=== PATIENT | male | born 1955 | race African-American/Black ===

== ENCOUNTER 2016-09-13 04:44 | Emergency (ER) | payer MEDICAID ==
[~2016-09-13] VITALS: Ht 185.4 cm; Wt 83.3 kg
[~2016-09-13 04:44] MED LIST: DIAZ10TA PO
[2016-09-13] MEDS ORDERED: [UNRECOGNIZED DRUG - OTHER] (04:51)
[2016-09-13 05:01] VITALS: BP 109/73
== END 2016-09-13 05:21 | disposition home or self-care (01) ==
LOC: ED 05:14
DX: S33.5XXA Sprain of ligaments of lumbar spine, initial encounter (principal); X58.XXXA Exposure to other specified factors, initial encounter; Y93.89 Activity, other specified; Y99.8 Other external cause status; Y92.89 Other specified places as the place of occurrence of the external cause
CPT/HCPCS: 99283

== ENCOUNTER 2016-11-01 20:05 | Emergency (ER) | payer MEDICAID ==
[~2016-11-01] VITALS: Ht 185.4 cm; Wt 83.1 kg
[~2016-11-01 20:05] MED LIST changes: +[UNRECOGNIZED DRUG - OTHER]
[2016-11-01 20:09] VITALS: BP 136/82
[2016-11-01] MEDS ORDERED: BACITRACIN ZINC OINT 500U/GM, 0.9 GM ONE (20:30)
== END 2016-11-01 20:45 | disposition home or self-care (01) ==
LOC: ED 20:30
DX: S91.114A Laceration without foreign body of right lesser toe(s) without damage to nail, initial encounter (principal); B35.1 Tinea unguium; I10 Essential (primary) hypertension; F32.9 Major depressive disorder, single episode, unspecified; X58.XXXA Exposure to other specified factors, initial encounter; Y93.89 Activity, other specified; Y92.89 Other specified places as the place of occurrence of the external cause; Y99.8 Other external cause status
CPT/HCPCS: 10160

== ENCOUNTER 2016-11-12 22:32 | Emergency (ER) | payer MEDICAID ==
[~2016-11-12] VITALS: Ht 185.4 cm; Wt 86.3 kg
[2016-11-13] MEDS ORDERED: MAALOX/HYOSCYAMINE/LIDOCAINE 45 ML BTL ONE (00:14)
[2016-11-13 00:28] LABS: HEMOGLOBIN 12.3 g/dL (13.7-18.0); WHITE BLOOD COUNT 5.4 x10^3/uL (3.4-10)
[2016-11-13] MEDS ORDERED: SODIUM CHLORIDE FLUSH 10ML SYR IVF ONE (00:30)
[2016-11-13] MEDS ORDERED: MAALOX/HYOSCYAMINE/LIDOCAINE 45 ML BTL PO ONE (00:30)
[2016-11-13 00:38] LABS: ASPARTATE AMINO TRANSFERASE 33 U/L (15-37); BLOOD UREA NITROGEN 15 mg/dL (7-18)
[2016-11-13 01:08] VITALS: BP 123/74
== END 2016-11-13 02:03 | disposition home or self-care (01) ==
LOC: ED 23:34
DX: R10.13 Epigastric pain (principal); I10 Essential (primary) hypertension
CPT/HCPCS: 36415; 71010; 80053; 83690; 85025; 93005; 99285

== ENCOUNTER 2016-11-20 16:34 | Emergency (ER) | payer MEDICAID ==
[~2016-11-20] VITALS: Ht 185.4 cm; Wt 82.0 kg
[2016-11-20] MEDS ORDERED: SODIUM CHLORIDE FLUSH 10ML SYR IVF ONE (17:00)
[2016-11-20] MEDS ORDERED: SODIUM CHLORIDE 0.9% 1,000ML IVBOLUS ONE (17:00)
[2016-11-20 17:17] LABS: HEMATOCRIT 40.2 % (39.2-51.8)
[2016-11-20 17:22] VITALS: BP 139/80
[2016-11-20 17:26] LABS: ASPARTATE AMINO TRANSFERASE 30 U/L (15-37); BLOOD UREA NITROGEN 14 mg/dL (7-18)
[2016-11-20 17:30] LABS: IS PT STATUS REG ER OR PRE ER? YES
[2016-11-20] MEDS ORDERED: AMOXICILLIN 500 MG CAPSULE PO ONE (18:00)
== END 2016-11-20 18:38 | disposition home or self-care (01) ==
LOC: ED 17:14
DX: J02.8 Acute pharyngitis due to other specified organisms (principal); R53.1 Weakness; R53.83 Other fatigue
CPT/HCPCS: 36415; 71010; 80053; 81003; 84484; 85025; 99285

== ENCOUNTER 2018-05-13 12:04 | Emergency (ER) | payer MEDICAID ==
[~2018-05-13] VITALS: Ht 185.4 cm; Wt 87.0 kg
[2018-05-13 13:28] LABS: ALBUMIN 3.8 g/dL (3.4-5.0); ANION GAP 4 mmol/L (5-15); CALCIUM 8.2 mg/dL (8.5-10.1); CHLORIDE 108 mmol/L (98-107); CREATININE 0.94 mg/dL (0.7-1.3)
[2018-05-13 13:41] LABS: BASOPHILS # (AUTO) 0.07 x10^3/uL (0-0.1); BASOPHILS % (AUTO) 2 % (0-1); EOSINOPHILS # (AUTO) 0.04 x10^3/uL (0-0.4); EOSINOPHILS % (AUTO) 1 % (1-7); LYMPHOCYTES # (AUTO) 0.97 x10^3/uL (1-3.4); LYMPHOCYTES % (AUTO) 21 % (22-44); MD SCAN; MEAN CORPUSCULAR HEMOGLOBIN 29.7 pg (27.5-34.5); MEAN CORPUSCULAR HGB CONC 33.8 g/dL (33.2-36.2); MEAN CORPUSCULAR VOLUME 87.7 fL (81-97); MEAN PLATELET VOLUME 7.8 fL (7.4-10.4); MONOCYTES # (AUTO) 0.34 x10^3/uL (0.2-0.8); MONOCYTES % (AUTO) 8 % (2-9); NEUTROPHILS # (AUTO) 3.11 x10^3/uL (1.8-6.8); NEUTROPHILS % (AUTO) 69 % (42-75); PLATELET COUNT 308 x10^3/uL (130-400); RED BLOOD COUNT 4.64 x10^6/uL (4.38-5.82); RED CELL DISTRIBUTION WIDTH 13.7 % (9.4-14.8)
--- NOTE | 2018-05-13 15:07 | NUR ---
TO ROOM TR01
--- NOTE | 2018-05-13 15:08 | NUR ---
PT STATED THAT BOTH HIS FEET HURT. PT HAS CRACKED HEELS THAT ARE OPEN. REPORTS FEELING WEAK. PT IS ALERT, ORIENTED, WITH NAD. PT IS CONNECTED TO THE MONITOR. CALL LIGHT WITHIN REACH.
[2018-05-13 15:10] VITALS: BP 136/89
[2018-05-13] MEDS ORDERED: BACITRACIN ZINC OINT 500U/GM, 0.9 GM ONE (15:14)
[2018-05-13] MEDS ORDERED: IBUPROFEN 200 MG TABLET ONE (15:41)
[2018-05-13] MEDS ORDERED: IBUPROFEN 200 MG TABLET PO ONE (16:00)
[2018-05-13] MEDS ORDERED: IBUPROFEN 600 MG TABLET PO ONE (16:00)
--- NOTE | 2018-05-13 16:24 | NUR ---
Pt took off all monitoring equipment and got dressed. Pt stated that he has to leave to go to work. Informed .
--- NOTE | 2018-05-13 16:25 | NUR ---
Patient given discharge instructions and they have confirmed that they understand the instructions. Patient ambulatory with steady gait.
== END 2018-05-13 16:27 | disposition home or self-care (01) ==
LOC: ED 16:09
DX: M79.672 Pain in left foot (principal); I10 Essential (primary) hypertension; F32.9 Major depressive disorder, single episode, unspecified; Z87.19 Personal history of other diseases of the digestive system
CPT/HCPCS: 36415; 80048; 82040; 85025; 93005; 99284

== ENCOUNTER 2018-09-21 11:50 | Emergency (ER) | payer MEDICAID ==
[~2018-09-21] VITALS: Ht 185.4 cm; Wt 82.2 kg
[2018-09-21 11:51] VITALS: BP 111/71
[2018-09-21] MEDS ORDERED: DEXAMETHASONE 4 MG TABLET PO ONE (12:30)
== END 2018-09-21 12:36 | disposition home or self-care (01) ==
LOC: ED 12:22
DX: J03.90 Acute tonsillitis, unspecified (principal); I10 Essential (primary) hypertension; F32.9 Major depressive disorder, single episode, unspecified
CPT/HCPCS: 99283

== ENCOUNTER 2018-09-21 19:29 | Emergency (ER) | payer MEDICAID ==
[~2018-09-21] VITALS: Ht 185.4 cm; Wt 82.3 kg
[2018-09-21 19:41] VITALS: BP 114/70
== END 2018-09-21 20:17 | disposition home or self-care (01) ==
LOC: ED 20:11
DX: K08.89 Other specified disorders of teeth and supporting structures (principal); I10 Essential (primary) hypertension; F32.9 Major depressive disorder, single episode, unspecified
CPT/HCPCS: 99283

== ENCOUNTER 2018-10-24 10:24 | Emergency (ER) | payer MEDICAID ==
[~2018-10-24] VITALS: Ht 185.4 cm; Wt 83.0 kg
[2018-10-24 10:28] VITALS: BP 110/72
--- NOTE | 2018-10-24 10:35 | NUR ---
FIRST CONTACT WITH PT. PT STATES "I HAVE A BRUISE ON MY LEFT FOOT. I TRIPPED. IT HAPPENED YESTERDAY." PT C/O SORE THROAT WELL. PT'S AOX4. RESPS EVEN AND UNLABORED. AWAITING ORDERES.
[2018-10-24] MEDS ORDERED: IBUPROFEN 600 MG TABLET ONE (10:52)
--- NOTE | 2018-10-24 10:55 | NUR ---
PT MEDICATED PER EMAR. PT TOLERATED WELL.
[2018-10-24] MEDS ORDERED: IBUPROFEN 600 MG TABLET PO ONE (11:00)
--- NOTE | 2018-10-24 11:48 | NUR ---
Patient given discharge instructions and they have confirmed that they understand the instructions. Patient ambulatory with steady gait.
== END 2018-10-24 11:49 | disposition home or self-care (01) ==
LOC: ED 11:35
DX: S93.492A Sprain of other ligament of left ankle, initial encounter (principal); I10 Essential (primary) hypertension; Z87.19 Personal history of other diseases of the digestive system; X50.1XXA Overexertion from prolonged static or awkward postures, initial encounter; Y93.02 Activity, running; Y92.488 Other paved roadways as the place of occurrence of the external cause; Y99.8 Other external cause status
CPT/HCPCS: 99283

== ENCOUNTER 2018-10-27 05:26 | Emergency (ER) | payer MEDICAID ==
[~2018-10-27] VITALS: Ht 185.4 cm; Wt 81.0 kg
[2018-10-27 05:34] VITALS: BP 130/65
== END 2018-10-27 06:42 | disposition home or self-care (01) ==
LOC: ED 06:26
DX: M25.572 Pain in left ankle and joints of left foot (principal); I10 Essential (primary) hypertension
CPT/HCPCS: 99282

== ENCOUNTER 2018-10-27 14:58 | Emergency (ER) | payer MEDICAID | END 2018-10-27 15:51 | disposition left against medical advice (07) | LOC: ED 15:45 | DX: R10.9 Unspecified abdominal pain (principal); Z53.21 Procedure and treatment not carried out due to patient leaving prior to being seen by health care provider ==

== ENCOUNTER 2018-11-04 01:44 | Emergency (ER) | payer MEDICAID ==
[~2018-11-04] VITALS: Ht 185.4 cm; Wt 79.6 kg
[2018-11-04 01:49] VITALS: BP 122/79
== END 2018-11-04 02:16 | disposition home or self-care (01) ==
LOC: ED 02:11
DX: L89.629 Pressure ulcer of left heel, unspecified stage (principal); L98.8 Other specified disorders of the skin and subcutaneous tissue; I10 Essential (primary) hypertension; F32.9 Major depressive disorder, single episode, unspecified
CPT/HCPCS: 99283

== ENCOUNTER 2018-11-04 23:31 | Emergency (ER) | payer MEDICAID ==
[~2018-11-04] VITALS: Ht 185.4 cm; Wt 80.0 kg
[2018-11-04 23:36] VITALS: BP 126/84
== END 2018-11-05 00:46 | disposition home or self-care (01) ==
LOC: ED 11-05 00:33
DX: S90.822A Blister (nonthermal), left foot, initial encounter (principal); M79.662 Pain in left lower leg; L89.622 Pressure ulcer of left heel, stage 2; I10 Essential (primary) hypertension; X58.XXXA Exposure to other specified factors, initial encounter; Y93.89 Activity, other specified; Y92.89 Other specified places as the place of occurrence of the external cause; Y99.8 Other external cause status
CPT/HCPCS: 99283

== ENCOUNTER 2018-11-17 03:20 | Emergency (ER) | payer MEDICAID ==
[~2018-11-17] VITALS: Ht 185.4 cm; Wt 79.7 kg
[2018-11-17 03:21] VITALS: BP 103/62
--- NOTE | 2018-11-17 03:35 | NUR ---
Pt c/o residual pain to left ankle, recently seen and treated for same complaint, states no new injury "pain is still there", requests "jamie bandage". ROM intact w/o pain, CMS intact, no open lesions noted, edema present to lateral medeolus. Provider at bedside for assessment. Jamie bandage placed per request.
--- NOTE | 2018-11-17 03:46 | NUR ---
Pt stable for discharge, education reviewed, verbalizes understanding. Ambulates w/ steady gait to front lobby.
== END 2018-11-17 03:48 | disposition home or self-care (01) ==
LOC: ED 03:47
DX: M25.572 Pain in left ankle and joints of left foot (principal)
CPT/HCPCS: 99282

== ENCOUNTER 2018-11-27 06:00 | Inpatient (IN) | payer MEDICAID ==
[~2018-11-27] VITALS: Ht 185.4 cm; Wt 82.3 kg
--- NOTE | 2018-11-27 06:24 | NUR ---
PT AMBULATORY TO ROOM AND PENDING MD VANCE AT THIS TIME.
[2018-11-27] MEDS ORDERED: MAALOX/HYOSCYAMINE/LIDOCAINE 45 ML BTL PO ONE (06:30)
[2018-11-27] MEDS ORDERED: MAALOX/HYOSCYAMINE/LIDOCAINE 45 ML BTL ONE (06:33)
--- NOTE | 2018-11-27 06:35 | NUR ---
EKG IN PROCESS AT THIS TIME.
--- NOTE | 2018-11-27 07:01 | NUR ---
GAVE REPORT TO DELANEY SANCHEZ AND RELINQUISHED CARE
--- NOTE | 2018-11-27 07:06 | NUR ---
REPORT FROM DELANEY RICARDO. ASSUMED CARE OF PATIENT AT THIS TIME.
[2018-11-27 07:16] LABS: BASOPHILS # (AUTO) 0.03 x10^3/uL (0-0.1); BASOPHILS % (AUTO) 1 % (0-1); EOSINOPHILS # (AUTO) 0.05 x10^3/uL (0-0.4); EOSINOPHILS % (AUTO) 2 % (1-7); LYMPHOCYTES # (AUTO) 1.15 x10^3/uL (1-3.4); LYMPHOCYTES % (AUTO) 36 % (22-44); MD NO; MEAN CORPUSCULAR HEMOGLOBIN 29.1 pg (27.5-34.5); MEAN CORPUSCULAR HGB CONC 32.7 g/dL (33.2-36.2); MEAN CORPUSCULAR VOLUME 89.1 fL (81-97); MEAN PLATELET VOLUME 7.3 fL (7.4-10.4); MONOCYTES # (AUTO) 0.29 x10^3/uL (0.2-0.8); MONOCYTES % (AUTO) 9 % (2-9); NEUTROPHILS # (AUTO) 1.65 x10^3/uL (1.8-6.8); NEUTROPHILS % (AUTO) 52 % (42-75); PLATELET COUNT 273 x10^3/uL (130-400); RED BLOOD COUNT 4.32 x10^6/uL (4.38-5.82); RED CELL DISTRIBUTION WIDTH 13.7 % (9.4-14.8)
[2018-11-27 07:25] LABS: ALBUMIN 3.3 g/dL (3.4-5.0); ANION GAP 4 mmol/L (5-15); CALCIUM 8.3 mg/dL (8.5-10.1); CHLORIDE 112 mmol/L (98-107); CREATININE 0.87 mg/dL (0.7-1.3)
[2018-11-27 07:29] LABS: TROPONIN I < 0.015 ng/mL (0.000-0.045)
--- NOTE | 2018-11-27 07:30 | NUR ---
PATIENT REQUESTS DIET EUN
--- NOTE | 2018-11-27 07:35 | NUR ---
Cardiology page placed @[id number]
[2018-11-27] MEDS ORDERED: ASPIRIN 81 MG TABLET CHEW PO ONE (08:00)
[2018-11-27] MEDS ORDERED: ASPIRIN 81 MG TABLET CHEW ONE (08:02)
--- NOTE | 2018-11-27 08:13 | NUR ---
BEDSIDE REPORT FROM LAURA BALTAZAR, IMPLEMENT MECHANIC ESTABLISHING IV AT THIS TIME. PT TO BE ADMITTED TO CARD/TELE.
--- NOTE | 2018-11-27 08:32 | NUR ---
REPORT TO ELLIS BALTAZAR
[2018-11-27] MEDS ORDERED: ATROPINE SYRINGE 0.1 MG/ML, 10ML ONE (09:19)
[2018-11-27] MEDS: SODIUM CHLORIDE 0.9% 1,000 ML IV SCH (10:50)
[2018-11-27] MEDS ORDERED: SIMETHICONE 80 MG CHEW TAB PO PRN (11:00)
[2018-11-27] MEDS ORDERED: ONDANSETRON 2MG/ML, 2ML IVPush PRN (11:00)
[2018-11-27] MEDS ORDERED: ONDANSETRON ODT 4 MG PO PRN (11:00)
[2018-11-27] MEDS: SUCRALFATE 1 GM/10 ML UDC PO SCH ×3 (11:56→20:09)
[2018-11-27] MEDS: ENOXAPARIN 40 MG/0.4 ML SQ SCH (11:56)
[2018-11-27] MEDS: FAMOTIDINE 20 MG TABLET PO SCH ×2 (11:56→20:09)
[2018-11-27 12:26] LABS: TROPONIN I < 0.015 ng/mL (0.000-0.045)
[2018-11-27 13:03] VITALS: BP 110/65
[2018-11-27] MEDS: LACTOBACILLUS CHEW TABLET PO SCH ×2 (17:02→20:09)
[2018-11-27] MEDS ORDERED: ATROPINE 0.4 MG/ML, 1ML IVPush ONE (18:30)
[2018-11-27] MEDS ORDERED: ATROPINE 0.4 MG/ML, 1ML IVPush PRN (19:00)
[2018-11-27 19:23] LABS: TROPONIN I < 0.015 ng/mL (0.000-0.045)
[2018-11-27 19:32] VITALS: BP 98/60
[2018-11-27] MEDS: SENNA/DOCUSATE TABLET PO SCH (20:09)
[2018-11-28 01:30] VITALS: BP 112/69
[2018-11-28] MEDS: SODIUM CHLORIDE 0.9% 1,000 ML IV SCH ×3 (03:35→21:25)
[2018-11-28 07:06] VITALS: BP 110/70
[2018-11-28] MEDS: LACTOBACILLUS CHEW TABLET PO SCH ×3 (09:05→21:26)
[2018-11-28] MEDS: SUCRALFATE 1 GM/10 ML UDC PO SCH ×4 (09:05→21:26)
[2018-11-28] MEDS: FAMOTIDINE 20 MG TABLET PO SCH ×2 (09:05→21:26)
[2018-11-28] MEDS: ENOXAPARIN 40 MG/0.4 ML SQ SCH (11:45)
[2018-11-28] MEDS ORDERED: CEFAZOLIN PMX 1GM/50ML 50 ML IVPB ONE (12:00)
[2018-11-28 13:50] VITALS: BP 126/81
[2018-11-28 20:21] VITALS: BP 109/64
[2018-11-28] MEDS: SENNA/DOCUSATE TABLET PO SCH (21:26)
[2018-11-29] MEDS: SODIUM CHLORIDE 0.9% 1,000 ML IV SCH ×3 (00:06→11:37)
[2018-11-29 02:38] VITALS: BP 132/84
[2018-11-29] MEDS: ACETAMINOPHEN 325 MG TABLET PO PRN ×2 (02:47→13:09)
[2018-11-29] MEDS ORDERED: CEFAZOLIN 1,000 MG ONE (07:19)
[2018-11-29] MEDS ORDERED: FENTANYL PF 100 MCG/2ML ONE (07:19)
[2018-11-29] MEDS ORDERED: LIDOCAINE 1%, 20ML ONE ×2 (07:19→08:40)
[2018-11-29] MEDS ORDERED: MIDAZOLAM 1 MG/ML, 5ML ONE (07:19)
[2018-11-29] MEDS ORDERED: CEFAZOLIN PMX 1GM/50ML 0 ML ONE (07:19)
[2018-11-29] MEDS: FAMOTIDINE 20 MG TABLET PO SCH ×2 (07:42→21:23)
[2018-11-29] MEDS: LACTOBACILLUS CHEW TABLET PO SCH ×3 (07:42→21:23)
[2018-11-29] MEDS: SUCRALFATE 1 GM/10 ML UDC PO SCH ×4 (07:42→21:23)
[2018-11-29 08:00] VITALS: BP 139/74
[2018-11-29] MEDS ORDERED: DIPHENHYDRAMINE 50 MG/ML, 1ML ONE (08:50)
[2018-11-29] MEDS ORDERED: ACETAMINOPHEN 325 MG TABLET PO PRN (09:30)
[2018-11-29 10:46] LABS: INTERNATIONAL NORMALIZED RATIO 1.01 (0.93-1.1); PROTHROMBIN TIME 10.6 Seconds (9.6-11.5)
[2018-11-29 14:03] VITALS: BP 114/80
[2018-11-29] MEDS: CEFAZOLIN PMX 1GM/50ML 50 ML IVPB SCH ×2 (15:18→23:05)
[2018-11-29 19:19] VITALS: BP 128/80
[2018-11-29] MEDS: SENNA/DOCUSATE TABLET PO SCH (21:22)
[2018-11-30 00:59] VITALS: BP 112/74
[2018-11-30] MEDS: ACETAMINOPHEN 325 MG TABLET PO PRN ×2 (02:36→07:48)
[2018-11-30 07:39] VITALS: BP 129/77
[2018-11-30] MEDS: SUCRALFATE 1 GM/10 ML UDC PO SCH ×2 (07:48→11:22)
[2018-11-30] MEDS: FAMOTIDINE 20 MG TABLET PO SCH (08:57)
[2018-11-30] MEDS: LACTOBACILLUS CHEW TABLET PO SCH (08:57)
== END 2018-11-30 11:46 | disposition home or self-care (01) | DRG 171 ==
LOC: ED 07:43 → EDIP 07:56 → INTOOBSV 07:56 → 5SO 08:52 → OBSVTOIN 11:57 → DCLOUNGE 11-30 11:39
PROVIDERS: ADMIT Family Medicine; ATTEND Family Medicine
PROC: 0JH606Z Insertion of Pacemaker, Dual Chamber into Chest Subcutaneous Tissue and Fascia, Open Approach (ICD-10-PCS; principal; 2018-11-29)
PROC: 02H63JZ Insertion of Pacemaker Lead into Right Atrium, Percutaneous Approach (ICD-10-PCS; 2018-11-29)
PROC: 02HK3JZ Insertion of Pacemaker Lead into Right Ventricle, Percutaneous Approach (ICD-10-PCS; 2018-11-29)
PROC: 4B02XSZ Measurement of Cardiac Pacemaker, External Approach (ICD-10-PCS; 2018-11-30)
DX: I49.5 Sick sinus syndrome (principal); F32.9 Major depressive disorder, single episode, unspecified; G47.00 Insomnia, unspecified; G89.29 Other chronic pain; I10 Essential (primary) hypertension; K21.9 Gastro-esophageal reflux disease without esophagitis; F41.9 Anxiety disorder, unspecified; R42 Dizziness and giddiness; Z91.14 Patient's other noncompliance with medication regimen; Z76.5 Malingerer [conscious simulation]; M54.9 Dorsalgia, unspecified
CPT/HCPCS: 33208; 36415; 71045; 80048; 82040; 83880; 84443; 84484; 85025; 85610; 93005; 93306; 99156; 99157; 99285; C1779; C1785; C1892; G0378; J0690; J1650; J2250; J3010; J1200; J7030; Q9967

== ENCOUNTER 2020-01-17 09:27 | Emergency (ER) | payer MEDICARE, MEDICAID ==
[~2020-01-17] VITALS: Ht 185.4 cm; Wt 82.8 kg
[2020-01-17 09:32] VITALS: BP 141/84
--- NOTE | 2020-01-17 09:45 | NUR ---
TESTICULAR PAIN X 1 WEEK - "IT JAIN WHEN I PUT ALCOHOL ON IT." NO GROSS DEFORMITY/SWELLING OR OBVIOUS DISCOLORATION NOTED VSS
== END 2020-01-17 10:19 | disposition home or self-care (01) ==
LOC: ED 09:48
DX: B35.6 Tinea cruris (principal); I10 Essential (primary) hypertension; G89.29 Other chronic pain
CPT/HCPCS: 99282

== ENCOUNTER 2020-02-06 09:28 | Emergency (ER) | payer MEDICARE, MEDICAID ==
[~2020-02-06] VITALS: Ht 185.4 cm; Wt 83.6 kg
[2020-02-06] MEDS ORDERED: MAALOX/HYOSCYAMINE/LIDOCAINE 45 ML BTL PO ONE (10:00)
[2020-02-06] MEDS ORDERED: MAALOX/HYOSCYAMINE/LIDOCAINE 45 ML BTL ONE (10:19)
--- NOTE | 2020-02-06 10:22 | NUR ---
pt medicated per mar.
--- NOTE | 2020-02-06 10:46 | NUR ---
PT STATES POSITIVE RELIEF OF SYMPTOMS
[2020-02-06 11:08] LABS: ALBUMIN 3.8 g/dL (3.4-5.0); ANION GAP 4 mmol/L (5-15); CHLORIDE 114 mmol/L (98-107)
[2020-02-06 11:08] LABS: BASOPHILS % (AUTO) 1 % (0-1); EOSINOPHILS % (AUTO) 1 % (1-7); LYMPHOCYTES % (AUTO) 23 % (22-44); MEAN CORPUSCULAR HEMOGLOBIN 29.3 pg (27.5-34.5); MEAN PLATELET VOLUME 7.8 fL (7.4-10.4); MONOCYTES % (AUTO) 11 % (2-9); NEUTROPHILS % (AUTO) 65 % (42-75); PLATELET COUNT 249 x10^3/uL (130-400); RED BLOOD COUNT 4.97 x10^6/uL (4.38-5.82); RED CELL DISTRIBUTION WIDTH 14.1 % (9.4-14.8)
[2020-02-06 11:10] LABS: MD NO
[2020-02-06 11:12] LABS: ALANINE AMINOTRANSFERASE 21 U/L (12-78); ALKALINE PHOSPHATASE 50 U/L (45-117); BILIRUBIN,TOTAL 0.6 mg/dL (0.2-1.0); CREATININE 1.07 mg/dL (0.7-1.3); TOTAL PROTEIN 7.6 g/dL (6.4-8.2)
[2020-02-06 11:33] VITALS: BP 122/81
--- NOTE | 2020-02-06 11:33 | NUR ---
pt to restroom. ambulates with a steady gait.
== END 2020-02-06 11:56 | disposition home or self-care (01) ==
LOC: ED 11:45
DX: R10.13 Epigastric pain (principal); B35.3 Tinea pedis; G89.29 Other chronic pain; I10 Essential (primary) hypertension
CPT/HCPCS: 36415; 80053; 85025; 99283

== ENCOUNTER 2020-03-26 14:25 | Emergency (ER) | payer MEDICARE, MEDICAID ==
[~2020-03-26] VITALS: Ht 185.4 cm; Wt 83.1 kg
[2020-03-26 18:55] VITALS: BP 146/97
[2020-03-26] MEDS ORDERED: DOXYCYCLINE 100MG TABLET PO ONE (19:00)
== END 2020-03-26 18:57 | disposition home or self-care (01) ==
LOC: ED 17:43
DX: I86.1 Scrotal varices (principal); N43.3 Hydrocele, unspecified; I10 Essential (primary) hypertension; M79.89 Other specified soft tissue disorders; N50.819 Testicular pain, unspecified
CPT/HCPCS: 76870; 99284

== ENCOUNTER 2020-04-03 09:24 | Emergency (ER) | payer MEDICARE, MEDICAID ==
[~2020-04-03] VITALS: Ht 185.4 cm; Wt 80.5 kg
[2020-04-03] MEDS ORDERED: PROMETHAZINE 25 MG/ML, 1ML IM ONE (10:00)
[2020-04-03 10:28] LABS: BASOPHILS % (AUTO) 1 % (0-1); EOSINOPHILS % (AUTO) 0 % (1-7); LYMPHOCYTES % (AUTO) 15 % (22-44); MEAN CORPUSCULAR HEMOGLOBIN 29.8 pg (27.5-34.5); MEAN PLATELET VOLUME 7.4 fL (7.4-10.4); MONOCYTES % (AUTO) 11 % (2-9); NEUTROPHILS % (AUTO) 73 % (42-75); PLATELET COUNT 258 x10^3/uL (130-400); RED BLOOD COUNT 4.77 x10^6/uL (4.38-5.82); RED CELL DISTRIBUTION WIDTH 13.3 % (9.4-14.8)
[2020-04-03 10:30] LABS: MD NO
[2020-04-03 10:38] LABS: ALANINE AMINOTRANSFERASE 30 U/L (12-78); ALBUMIN 4.2 g/dL (3.4-5.0); ANION GAP 6 mmol/L (5-15); CHLORIDE 112 mmol/L (98-107); CREATININE 1.07 mg/dL (0.7-1.3)
[2020-04-03 10:40] LABS: ALKALINE PHOSPHATASE 52 U/L (45-117); BILIRUBIN,TOTAL 1.2 mg/dL (0.2-1.0); TOTAL PROTEIN 7.8 g/dL (6.4-8.2)
[2020-04-03] MEDS ORDERED: MAALOX/HYOSCYAMINE/LIDOCAINE 45 ML BTL ONE (10:55)
[2020-04-03] MEDS ORDERED: MAALOX/HYOSCYAMINE/LIDOCAINE 45 ML BTL PO ONE (11:00)
--- NOTE | 2020-04-03 11:30 | NUR ---
PT HAS CO STOMACH PAIN. GIVEN GI COCKTAIL. STATES HE FEELS BETTER
--- NOTE | 2020-04-03 12:15 | NUR ---
Patient/Caregiver given discharge instructions and they have confirmed that they understand the instructions. Patient ambulatory with steady gait.
[2020-04-03 12:16] VITALS: BP 140/86
== END 2020-04-03 12:18 | disposition home or self-care (01) ==
LOC: ED 10:15
DX: K52.1 Toxic gastroenteritis and colitis (principal)
CPT/HCPCS: 36415; 74018; 80053; 85025; 99284

== ENCOUNTER 2020-04-08 22:22 | Emergency (ER) | payer MEDICARE, MEDICAID ==
[~2020-04-08] VITALS: Ht 185.4 cm; Wt 82.0 kg
[2020-04-08] MEDS ORDERED: HYDROmorphone 1 MG/ML, 1ML INJ ONE (22:54)
[2020-04-08] MEDS ORDERED: ACETAMINOPHEN 500 MG TABLET ONE (22:54)
[2020-04-08] MEDS ORDERED: MAALOX/HYOSCYAMINE/LIDOCAINE 45 ML BTL ONE (22:56)
[2020-04-08] MEDS ORDERED: ACETAMINOPHEN 500 MG TABLET PO ONE (23:00)
[2020-04-08] MEDS ORDERED: HYDROmorphone 1 MG/ML, 1ML INJ IM ONE (23:00)
[2020-04-08] MEDS ORDERED: MAALOX/HYOSCYAMINE/LIDOCAINE 45 ML BTL PO ONE (23:00)
[2020-04-09 00:19] VITALS: BP 136/87
== END 2020-04-09 00:21 | disposition home or self-care (01) ==
LOC: ED 23:00
DX: K40.91 Unilateral inguinal hernia, without obstruction or gangrene, recurrent (principal); G89.29 Other chronic pain
CPT/HCPCS: 96374; 99283; J1170

== ENCOUNTER 2020-04-09 10:27 | Emergency (ER) | payer MEDICARE, MEDICAID ==
[~2020-04-09] VITALS: Ht 185.4 cm; Wt 83.7 kg
[2020-04-09 10:31] VITALS: BP 126/85
== END 2020-04-09 11:34 | disposition home or self-care (01) ==
LOC: ED 11:09
DX: K40.91 Unilateral inguinal hernia, without obstruction or gangrene, recurrent (principal); B35.3 Tinea pedis; N50.811 Right testicular pain; I10 Essential (primary) hypertension; G89.29 Other chronic pain; Z87.891 Personal history of nicotine dependence
CPT/HCPCS: 99282

== ENCOUNTER 2020-04-10 16:54 | Emergency (ER) | payer MEDICARE, MEDICAID ==
[~2020-04-10] VITALS: Ht 185.4 cm; Wt 82.0 kg
[2020-04-10] MEDS ORDERED: MAALOX/HYOSCYAMINE/LIDOCAINE 45 ML BTL ONE (17:11)
[2020-04-10 17:13] VITALS: BP 134/80
--- NOTE | 2020-04-10 17:15 | NUR ---
GI cocktail given. Dr. Kang reduced pt.'s hernia and instructed pt on how to do it at home. Pt agrees with and understands discharge plan and instructions.
[2020-04-10] MEDS ORDERED: MAALOX/HYOSCYAMINE/LIDOCAINE 45 ML BTL PO ONE (17:30)
== END 2020-04-10 17:26 | disposition home or self-care (01) ==
LOC: ED 17:15
DX: K40.91 Unilateral inguinal hernia, without obstruction or gangrene, recurrent (principal); I10 Essential (primary) hypertension; M79.89 Other specified soft tissue disorders; G89.29 Other chronic pain
CPT/HCPCS: 99283

== ENCOUNTER 2020-04-11 17:31 | Emergency (ER) | payer MEDICARE, MEDICAID ==
[~2020-04-11] VITALS: Ht 185.4 cm; Wt 80.3 kg
--- NOTE | 2020-04-11 17:49 | NUR ---
pt c/o hernia to RLQ. "it popped out yesterday and I put it back in, today it didn't work" c/o intense pain and cramping.
[2020-04-11 18:45] VITALS: BP 138/78
== END 2020-04-11 18:47 | disposition home or self-care (01) ==
LOC: ED 17:57
DX: K40.91 Unilateral inguinal hernia, without obstruction or gangrene, recurrent (principal); I10 Essential (primary) hypertension; F17.200 Nicotine dependence, unspecified, uncomplicated
CPT/HCPCS: 99281

== ENCOUNTER 2020-04-15 17:23 | Emergency (ER) | payer MEDICARE, MEDICAID ==
[~2020-04-15] VITALS: Ht 185.4 cm; Wt 82.0 kg
[2020-04-15 17:25] VITALS: BP 108/84
--- NOTE | 2020-04-15 17:44 | NUR ---
ERP MD Summers at bedside for eval. MD Summers able to reduce it. Pt in trundelenburg, ice in place.
[2020-04-15] MEDS ORDERED: NEOSPORIN OINT. PKT 1 PACKET ONE ×2 (18:17→18:42)
--- NOTE | 2020-04-15 18:46 | NUR ---
This RN dressed left heel wound.
== END 2020-04-15 18:48 | disposition home or self-care (01) ==
LOC: ED 18:25
DX: S90.812A Abrasion, left foot, initial encounter (principal); K40.91 Unilateral inguinal hernia, without obstruction or gangrene, recurrent; X58.XXXA Exposure to other specified factors, initial encounter; Y93.89 Activity, other specified; Y92.89 Other specified places as the place of occurrence of the external cause; Y99.8 Other external cause status
CPT/HCPCS: 99283

== ENCOUNTER 2020-04-16 10:54 | Emergency (ER) | payer MEDICARE, MEDICAID ==
[~2020-04-16] VITALS: Ht 185.4 cm; Wt 82.2 kg
[2020-04-16 11:02] VITALS: BP 106/60
[2020-04-16] MEDS ORDERED: NEOSPORIN OINT. PKT 1 PACKET ONE ×2 (11:52→11:53)
== END 2020-04-16 12:15 | disposition home or self-care (01) ==
LOC: ED 11:23
DX: K40.90 Unilateral inguinal hernia, without obstruction or gangrene, not specified as recurrent (principal); G89.29 Other chronic pain; I10 Essential (primary) hypertension
CPT/HCPCS: 99282

== ENCOUNTER 2020-04-20 12:36 | Emergency (ER) | payer MEDICARE, MEDICAID ==
[~2020-04-20] VITALS: Ht 185.4 cm; Wt 82.0 kg
--- NOTE | 2020-04-20 12:41 | NUR ---
C/O RT GROIN AREA PAIN. HX RT HERNIA W/ SURGERY SCHEDULED FOR APR 26, 2020. TOOK IBUPROFEN AT 0500. + SWELLING TO AREA. RATES PAIN AT 12/29
--- NOTE | 2020-04-20 12:43 | NUR ---
CARLEE OLIVEROS AT BS FOR EXAM. PT STATES HE WAS HELPING HIS SON MOVE BOXES LAST NOC.
[2020-04-20] MEDS ORDERED: MAALOX/HYOSCYAMINE/LIDOCAINE 45 ML BTL PO ONE (13:00)
[2020-04-20] MEDS ORDERED: HYDROcodone/APAP 5/325 TABLET PO ONE (13:00)
--- NOTE | 2020-04-20 13:10 | NUR ---
PT VOIDED 90ML INTO URINAL
[2020-04-20] MEDS ORDERED: MAALOX/HYOSCYAMINE/LIDOCAINE 45 ML BTL ONE (13:20)
[2020-04-20] MEDS ORDERED: HYDROcodone/APAP 5/325 TABLET ONE (13:20)
--- NOTE | 2020-04-20 13:25 | NUR ---
NORCO & GI COCKTAIL GIVEN PER EMAR.
--- NOTE | 2020-04-20 14:18 | NUR ---
CARE FOR DC ONLY PROVIDED. NO IV TO DC. PT DENIES PAIN AT THIS TIME. NO ACUTE DISTRESS NOTED. REVIEWED DC INSTRUCTIONS WITH PT. UNDERSTANDING VERBALIZED. PT LEFT AMB. PT STATES "I GOT MY BUS PASS. I'M OK"
[2020-04-20 14:19] VITALS: BP 140/92
[2020-04-20] MEDS ORDERED: IBUP-1222 PO (20:35)
== END 2020-04-20 14:23 | disposition home or self-care (01) ==
LOC: ED 14:12
DX: K40.91 Unilateral inguinal hernia, without obstruction or gangrene, recurrent (principal); I10 Essential (primary) hypertension; R10.2 Pelvic and perineal pain; G89.29 Other chronic pain; Z87.891 Personal history of nicotine dependence
CPT/HCPCS: 99283

== ENCOUNTER 2020-04-20 22:33 | Emergency (ER) | payer MEDICARE, MEDICAID ==
[~2020-04-20] VITALS: Ht 193 cm; Wt 82.0 kg
[~2020-04-20 22:33] MED LIST changes: +IBUP-1222 PO
[2020-04-20 22:36] VITALS: BP 125/73
--- NOTE | 2020-04-20 22:52 | NUR ---
Provider at bedside.
--- NOTE | 2020-04-20 23:00 | NUR ---
Provided pt socks, taxi voucher, ice pack.
--- NOTE | 2020-04-20 23:11 | NUR ---
Pt refused discharge vital signs.
== END 2020-04-20 23:12 | disposition home or self-care (01) ==
LOC: ED 23:00
DX: N50.819 Testicular pain, unspecified (principal)
CPT/HCPCS: 99283

== ENCOUNTER 2020-04-24 19:34 | Emergency (ER) | payer MEDICARE, MEDICAID ==
[~2020-04-24] VITALS: Ht 185.4 cm; Wt 82.0 kg
[2020-04-24 19:53] VITALS: BP 148/87
[2020-04-24] MEDS ORDERED: MAALOX/HYOSCYAMINE/LIDOCAINE 45 ML BTL PO ONE (20:30)
[2020-04-24] MEDS ORDERED: MAALOX/HYOSCYAMINE/LIDOCAINE 45 ML BTL ONE (20:44)
== END 2020-04-24 21:16 | disposition home or self-care (01) ==
LOC: ED 21:00
DX: K40.91 Unilateral inguinal hernia, without obstruction or gangrene, recurrent (principal); N50.812 Left testicular pain; N50.811 Right testicular pain; I10 Essential (primary) hypertension; R11.0 Nausea
CPT/HCPCS: 99283

== ENCOUNTER 2020-04-25 16:47 | Emergency (ER) | payer MEDICARE, MEDICAID ==
[~2020-04-25] VITALS: Ht 185.4 cm; Wt 82.0 kg
[2020-04-25 16:48] VITALS: BP 140/83
[2020-04-25] MEDS ORDERED: MAALOX/HYOSCYAMINE/LIDOCAINE 45 ML BTL ONE (16:57)
[2020-04-25] MEDS ORDERED: MAALOX/HYOSCYAMINE/LIDOCAINE 45 ML BTL PO ONE (17:00)
--- NOTE | 2020-04-25 17:05 | NUR ---
PT BIBA. PER EMS PT HAS HX X1 MONTH OF HERNIA, HAS SX SCHEDULED FOR TOMORROW TO REPAIR BUT IT POPPED OUT AGAIN AT APPROX 1600. PT CURRENTLY IN 8/10 PAIN AFTER 150MCG OF FENTANYL GIVEN BY EMS. CARLEE WEI AT BS. PT MEDICATED PER EMAR. MONITORING IN PLACE, WCTM.
== END 2020-04-25 17:42 | disposition home or self-care (01) ==
LOC: ED 17:36
DX: K40.91 Unilateral inguinal hernia, without obstruction or gangrene, recurrent (principal); I10 Essential (primary) hypertension; Z72.9 Problem related to lifestyle, unspecified; Z87.891 Personal history of nicotine dependence
CPT/HCPCS: 99283

== ENCOUNTER 2020-04-26 15:39 | Emergency (ER) | payer MEDICARE, MEDICAID ==
[~2020-04-26] VITALS: Ht 185.4 cm; Wt 80.0 kg
--- NOTE | 2020-04-26 15:46 | NUR ---
PT BIBA. PER EMS PT IS HERE D/T PAINFUL HERNIA. PT SEEN HERE LAST NIGHT FOR SAME. PER PT HE WAS SUPPOSED TO GET SX ON HERNIA TODAY BUT WAS UNABLE TO DUE TO "MY PACEMAKER NEEDS TO BE CHECKED OUT FIRST". PT STATES WHILE WAITING TO GET PACEMAKER CHECKED OUT HIS HERNIA POPPED OUT AGAIN AND IS 10/10 PAIN. PT RESTING IN [facility], MONITORING IN PLACE, SANJUANA BEJARANO AT BS, NADN AT THIS TIME, WILL CONTINUE TO MONITOR.
[2020-04-26] MEDS ORDERED: MAALOX/HYOSCYAMINE/LIDOCAINE 45 ML BTL ONE (15:54)
[2020-04-26] MEDS ORDERED: MAALOX/HYOSCYAMINE/LIDOCAINE 45 ML BTL PO ONE (16:00)
[2020-04-26] MEDS ORDERED: HYDROcodone/APAP 5/325 TABLET ONE (16:14)
[2020-04-26] MEDS ORDERED: HYDROcodone/APAP 5/325 TABLET PO ONE (16:30)
--- NOTE | 2020-04-26 17:10 | NUR ---
SANJUANA BEJARANO AT BEDSIDE TO ATTEMPT TO REDUCE HERNIA AGAIN.
[2020-04-26 17:40] VITALS: BP 138/75
== END 2020-04-26 17:41 | disposition home or self-care (01) ==
LOC: ED 16:28
DX: K40.91 Unilateral inguinal hernia, without obstruction or gangrene, recurrent (principal); R10.31 Right lower quadrant pain; R10.9 Unspecified abdominal pain; I10 Essential (primary) hypertension; F17.210 Nicotine dependence, cigarettes, uncomplicated; Z72.9 Problem related to lifestyle, unspecified
CPT/HCPCS: 99283; 99406

== ENCOUNTER 2020-04-29 21:21 | Emergency (ER) | payer MEDICARE, MEDICAID ==
[~2020-04-29] VITALS: Ht 185.4 cm; Wt 82.0 kg
--- NOTE | 2020-04-29 21:45 | NUR ---
PATIENT BIB [facility] WITH WORSENING R TESTICULAR PAIN. PATIENT STATES HE HAS VALIUM AT HOME BUT DID NOT TAKE ANY TODAY. WHEN ASKED WHY BY RN, HE RESPONDS "BECAUSE I KNOW IT DOES NOTHING FOR ME". HE REPORTS TAKING ONE [facility] REPRESENTATIVE. PATIENT MOANING IN PAIN GUARDING OF R TESTICLE. HE STATES HE HAS AN APPT FOR SURGERY TOMORROW AT [facility] TO HAVE HERNIA REPAIR ON ABDOMINAL HENRIATION SITE AND R TESTICLE SITE CALL [place] IN REACH. SAFETY MAINTAINED. WILL CONTINUE TO MONITOR
[2020-04-29] MEDS ORDERED: MAALOX/HYOSCYAMINE/LIDOCAINE 45 ML BTL ONE (21:58)
[2020-04-29] MEDS ORDERED: MAALOX/HYOSCYAMINE/LIDOCAINE 45 ML BTL PO ONE (22:00)
[2020-04-29 22:13] VITALS: BP 147/86
--- NOTE | 2020-04-29 22:22 | NUR ---
PATIENT REFUSING TO LEAVE ER. PAIN MEDICATION WAS ADMINISTERED AND DC INSTRUCTIONS REVIEWED WITH PATIENT BY BROOKLYNN BALTAZAR. HE STATES HES NOT READY TO LEAVE YET.
--- NOTE | 2020-04-29 22:34 | NUR ---
PATIENT AMBULATED TO REGISTRATION DESK WITH STEADY GAIT. NO IV PLACED DURING THIS VISIT. ALL PERSONAL BELONGINGS WITH PATIENT
== END 2020-04-29 22:36 | disposition home or self-care (01) ==
LOC: ED 21:34
DX: K40.91 Unilateral inguinal hernia, without obstruction or gangrene, recurrent (principal); Z72.9 Problem related to lifestyle, unspecified; I10 Essential (primary) hypertension; G89.29 Other chronic pain; Z87.891 Personal history of nicotine dependence
CPT/HCPCS: 99283

== ENCOUNTER 2020-05-22 16:22 | Emergency (ER) | payer MEDICARE, MEDICAID ==
[~2020-05-22] VITALS: Ht 185.4 cm; Wt 80.5 kg
[2020-05-22 16:26] VITALS: BP 118/73
== END 2020-05-22 17:57 | disposition home or self-care (01) ==
LOC: ED 17:45
DX: L30.8 Other specified dermatitis (principal); I10 Essential (primary) hypertension; Z87.891 Personal history of nicotine dependence
CPT/HCPCS: 99283

== ENCOUNTER 2020-05-24 22:46 | Emergency (ER) | payer MEDICARE, MEDICAID ==
[~2020-05-24] VITALS: Ht 182.9 cm; Wt 85.0 kg
[2020-05-24 22:50] VITALS: BP 153/87
--- NOTE | 2020-05-24 22:57 | NUR ---
PT BIBA. PER EMS PT IS HERE FOR ABD PAIN AND HERNIA REDUCTION. PT RESTING IN [place] AT THIS TIME, NADN, MONITORING IN PLACE, EKG DONE. WCTM.
[2020-05-24] MEDS ORDERED: MAALOX/HYOSCYAMINE/LIDOCAINE 45 ML BTL PO ONE (23:00)
[2020-05-24] MEDS ORDERED: MAALOX/HYOSCYAMINE/LIDOCAINE 45 ML BTL ONE (23:01)
[2020-05-24] MEDS ORDERED: CEFDINIR 300 MG CAPSULE PO ONE (23:30)
== END 2020-05-24 23:33 | disposition home or self-care (01) ==
LOC: ED 23:27
DX: K40.91 Unilateral inguinal hernia, without obstruction or gangrene, recurrent (principal); R10.31 Right lower quadrant pain; I10 Essential (primary) hypertension; R94.31 Abnormal electrocardiogram [ECG] [EKG]; Z72.9 Problem related to lifestyle, unspecified
CPT/HCPCS: 93005; 99283

== ENCOUNTER 2020-05-25 17:59 | Emergency (ER) | payer MEDICARE, MEDICAID ==
[~2020-05-25] VITALS: Ht 185.4 cm; Wt 76.0 kg
[2020-05-25] MEDS ORDERED: OMNIPAQUE 350 MG/ML, 100ML BOTTLE ONE (19:00)
[2020-05-25] MEDS: SODIUM CHLORIDE 0.9% 1,000ML IVBOLUS ONE ×2 (19:00→20:45)
[2020-05-25] MEDS ORDERED: SODIUM CHLORIDE FLUSH 10ML SYR IVF ONE (19:00)
--- NOTE | 2020-05-25 19:04 | NUR ---
FIRST CONTACT PT IN ROOM.
[2020-05-25 19:20] LABS: BASOPHILS % (AUTO) 1 % (0-1); EOSINOPHILS % (AUTO) 1 % (1-7); LYMPHOCYTES % (AUTO) 16 % (22-44); MEAN CORPUSCULAR HEMOGLOBIN 29.5 pg (27.5-34.5); MEAN CORPUSCULAR HGB CONC 33.3 g/dL (33.2-36.2); MEAN PLATELET VOLUME 7.5 fL (7.4-10.4); MONOCYTES % (AUTO) 8 % (2-9); NEUTROPHILS % (AUTO) 75 % (42-75); PLATELET COUNT 278 x10^3/uL (130-400); RED CELL DISTRIBUTION WIDTH 13.3 % (9.4-14.8)
[2020-05-25 19:22] LABS: MD NO
[2020-05-25 19:31] LABS: ALANINE AMINOTRANSFERASE 20 U/L (12-78); ANION GAP 8 mmol/L (5-15); CALCIUM 8.5 mg/dL (8.5-10.1); CHLORIDE 108 mmol/L (98-107); CREATININE 1.17 mg/dL (0.7-1.3)
[2020-05-25 19:33] LABS: ALKALINE PHOSPHATASE 59 U/L (45-117); BILIRUBIN,TOTAL 0.7 mg/dL (0.2-1.0); TOTAL PROTEIN 8.2 g/dL (6.4-8.2)
--- NOTE | 2020-05-25 20:00 | NUR ---
pt in bed down to ct
[2020-05-25 20:30] VITALS: BP 142/68
--- NOTE | 2020-05-25 21:17 | NUR ---
pt walked out self with steady gait. disscuessed if s&s worsen return to to er. pc piv. bus pass given
== END 2020-05-25 21:19 | disposition home or self-care (01) ==
LOC: ED 20:33
DX: R10.2 Pelvic and perineal pain (principal); L98.9 Disorder of the skin and subcutaneous tissue, unspecified; I10 Essential (primary) hypertension; Z79.899 Other long term (current) drug therapy
CPT/HCPCS: 36415; 74177; 80053; 85025; 99285; J7030; Q9967; 96360

== ENCOUNTER 2020-05-28 13:29 | Emergency (ER) | payer MEDICARE, MEDICAID ==
[~2020-05-28] VITALS: Ht 185.4 cm; Wt 79.7 kg
[2020-05-28 13:33] VITALS: BP 108/66
[2020-05-28] MEDS ORDERED: SODIUM CHLORIDE FLUSH 10ML SYR IVF ONE (14:30)
[2020-05-28 14:46] LABS: BASOPHILS % (AUTO) 1 % (0-1); EOSINOPHILS % (AUTO) 0 % (1-7); LYMPHOCYTES % (AUTO) 8 % (22-44); MEAN CORPUSCULAR HEMOGLOBIN 29.2 pg (27.5-34.5); MEAN CORPUSCULAR HGB CONC 33.1 g/dL (33.2-36.2); MEAN PLATELET VOLUME 7.4 fL (7.4-10.4); MONOCYTES % (AUTO) 9 % (2-9); NEUTROPHILS % (AUTO) 82 % (42-75); PLATELET COUNT 247 x10^3/uL (130-400); RED BLOOD COUNT 4.52 x10^6/uL (4.38-5.82); RED CELL DISTRIBUTION WIDTH 13.2 % (9.4-14.8)
[2020-05-28 14:56] LABS: ALBUMIN 3.2 g/dL (3.4-5.0); ANION GAP 5 mmol/L (5-15); CALCIUM 7.9 mg/dL (8.5-10.1); CHLORIDE 108 mmol/L (98-107); CREATININE 1.12 mg/dL (0.7-1.3)
[2020-05-28 15:05] LABS: MD SCAN
[2020-05-28] MEDS ORDERED: OMNIPAQUE 350 MG/ML, 100ML BOTTLE ONE (15:16)
== END 2020-05-28 16:27 | disposition home or self-care (01) ==
LOC: ED 16:10
DX: L03.315 Cellulitis of perineum (principal); I10 Essential (primary) hypertension
CPT/HCPCS: 36415; 72193; 80048; 82040; 85025; 99285; Q9967

== ENCOUNTER 2020-09-09 09:24 | Emergency (ER) | payer MEDICARE, MEDICAID ==
[~2020-09-09] VITALS: Ht 185.4 cm; Wt 82.3 kg
[2020-09-09 09:33] VITALS: BP 106/71
[2020-09-09] MEDS ORDERED: BACITRACIN ZINC OINT 500U/GM, 0.9 GM ONE (10:13)
== END 2020-09-09 10:40 | disposition home or self-care (01) ==
LOC: ED 10:14
DX: S90.822A Blister (nonthermal), left foot, initial encounter (principal); X58.XXXA Exposure to other specified factors, initial encounter; Y93.89 Activity, other specified; Y92.89 Other specified places as the place of occurrence of the external cause; Y99.8 Other external cause status
CPT/HCPCS: 99282

== ENCOUNTER 2020-11-01 19:25 | Emergency (ER) | payer MEDICARE, MEDICAID ==
[~2020-11-01] VITALS: Ht 185.4 cm; Wt 85.3 kg
[2020-11-01 19:34] VITALS: BP 132/84
[2020-11-01] MEDS ORDERED: AZITHROMYCIN 500 MG TABLET PO ONE (20:00)
[2020-11-01] MEDS ORDERED: CEFTRIAXONE 1,000 MG IM ONE (20:00)
[2020-11-01] MEDS ORDERED: CEFTRIAXONE 1,000 MG ONE (23:16)
--- NOTE | 2020-11-01 23:24 | NUR ---
PIT, PT MEDICATED FOR STD. URINE SENT FOR TESTING. PT DISCHARGED FROM TRIAGE.
== END 2020-11-01 23:26 | disposition home or self-care (01) ==
LOC: ED 23:00
DX: N34.1 Nonspecific urethritis (principal)
CPT/HCPCS: 76870; 87491; 87591; 96372; 99284; J0696